=== PATIENT | male | born 1970 | race Caucasian/White ===

== ENCOUNTER 2016-07-19 11:07 | Emergency (ER) | payer OTHER ==
[2016-07-19 11:15] VITALS: BP 167/100; PULSE 86; RESP 18; TEMP 98; O2SAT 100
[2016-07-19] MEDS ORDERED: HYDROCHLOROTHIAZIDE 25 MG TAB PO ONE (11:45)
[2016-07-19 11:51] LABS: BASOPHILS % (AUTO) 1 % (0-3); EOSINOPHILS % (AUTO) 0 % (0-9); HEMATOCRIT 44 % (39-53); MEAN CORPUSCULAR HGB CONC 34.7 gm/dl (32.0-36.0); MEAN CORPUSCULAR VOLUME 83 fL (80-100); MONOCYTES % (AUTO) 4.4 % (0-12); NEUTROPHILS % (AUTO) 85.2 % (37-80)
[2016-07-19 12:02] LABS: CALCIUM 9.1 mg/dl (8.5-10.1); POTASSIUM 3.7 mMol/L (3.5-5.1)
== END 2016-07-19 12:42 | disposition home or self-care (01) | DRG 552 ==
LOC: EDSTATUS 11:07 → ED 11:07
DX: M43.6 Torticollis (principal)
CPT/HCPCS: 36415; 70450; 80048; 85025; 99282; 99283